=== PATIENT | male | born 1990 | race Caucasian/White ===

== ENCOUNTER 2016-07-08 07:48 | Emergency (ER) | payer BC ==
[~2016-07-08] VITALS: Ht 190.5 cm; Wt 133.8 kg
[~2016-07-08 07:48] MED LIST: PREDNISONE10 MG PO; PROVENTIL0.09 MG/A1 INH
[2016-07-08 08:08] LABS: BASO # 0.1 10*3/uL (0.0-0.1); BASO % 0.9 % (0.0-1.0); EOS # 0.5 10*3/uL (0.0-0.4); EOS % 5.2 % (1.0-4.0); HEMATOCRIT 49.6 % (42.0-52.0); HEMOGLOBIN 16.5 g/dl (14.0-18.0); LYMPH # 1.8 10*3/uL (1.3-4.4); LYMPH % 20.7 % (27.0-41.0); MEAN CELL VOLUME 85.8 fl (80.0-94.0); MEAN CORPUSCULAR HGB 28.5 pg (27.0-31.0); MEAN CORPUSCULAR HGB CONC 33.3 g/dl (33.0-37.0); MEAN PLATELET VOLUME 9.7 fl (9.6-12.3); MONO # 1.2 10*3/uL (0.1-1.0); MONO % 13.6 % (3.0-9.0); NEUT # 5.1 10*3/uL (2.3-7.9); NEUT % 59.4 % (47.0-73.0); PLATELET COUNT AUTOMATED 336 10*3/uL (130-400); RED BLOOD COUNT 5.78 10*6/uL (4.50-5.90); RED CELL DISTRI WIDTH 14.2 % (0-14.5); WHITE BLOOD COUNT 8.6 10*3/uL (4.8-10.8)
[2016-07-08 08:19] LABS: BUN 8 mg/dl (7-24); CARBON DIOXIDE 25 mmol/L (21-32); CHLORIDE 104 mmol/L (98-107); EST GLOM FILT AFRICAN AMERICAN > 60 ml/min; GLUCOSE 124 mg/dL (65-99); POTASSIUM 3.5 mmol/L (3.5-5.1); SODIUM 140 mmol/L (136-145)
[2016-07-08] MEDS ORDERED: ZITHROMAX250 MG PO (09:02)
[2016-07-08] MEDS ORDERED: ALBUTEROL2.5 MG/0.5 INH (09:02)
[2016-07-08] MEDS ORDERED: DELTASONE20 M1 PO (09:02)
== END 2016-07-08 09:15 | disposition home or self-care (01) ==
LOC: ED 07:48
PROVIDERS: Emergency Medicine
DX: J45.909 Unspecified asthma, uncomplicated (principal); Z91.010 Allergy to peanuts

== ENCOUNTER 2016-12-11 06:50 | Emergency (ER) | payer BC ==
[~2016-12-11] VITALS: Wt 136.1 kg
[~2016-12-11 06:50] MED LIST changes: +ALBUTEROL2.5 MG/0.5 INH; +DELTASONE20 M1 PO; +ZITHROMAX250 MG PO
[2016-12-11] MEDS ORDERED: PROVENTIL HFA6.7 GM INH (07:21)
[2016-12-11] MEDS ORDERED: DELTASONE20 M1 PO (07:21)
[2016-12-11] MEDS ORDERED: DUONEB 3 MG/3 ML3 M1 INH (07:21)
== END 2016-12-11 08:20 | disposition home or self-care (01) ==
LOC: ED 06:50
DX: J45.31 Mild persistent asthma with (acute) exacerbation (principal); M54.9 Dorsalgia, unspecified; Z91.010 Allergy to peanuts

== ENCOUNTER 2016-12-21 14:55 | Inpatient (IN) | payer BC ==
[~2016-12-21] VITALS: Ht 193 cm; Wt 131.6 kg
--- NOTE | ~2016-12-21 | CON ---
[place], [place] REPORT OF CONSULTATION NAME: JULIO GARCIA UNIT #: [id number] [facility]: [facility] DOCTOR: RUSS DICKSON MD BIRTHDATE: [birth year] DOS: 12/22/2016 PULMONARY CONSULTATION, EVALUATION AND MANAGEMENT CONSULTATION REQUESTED BY: Hospitalist services. REASON FOR CONSULTATION: Assessment of bronchial asthma and respiratory failure. HISTORY OF PRESENT ILLNESS: A 26-year-old white male, unknown to me from the past. The patient has been noted with history of bronchial asthma and not using any regular medication for the patient. He has been recently seen in the Emergency Room. Prescribed the metered dose inhaler for this patient for his respiratory symptom management, sent home, which has been all used by the patient at this time. He presented back to the hospital. The patient was reported symptoms of progressive worsening of shortness of breath, which has been noted quite severe, associated wheezing with nonproductive cough. Chest tightness, the patient described. The patient denies any symptoms of hemoptysis. The cough has been noted with a question of sputum expectoration. He has been admitted to the hospital and currently being managed for the acute exacerbation of bronchial asthma with respiratory failure. REVIEW OF SYSTEMS: CONSTITUTIONAL: Fatigue and tiredness noted without symptoms of fever or chills. EYES: Denies any burning, redness, or tenderness. EARS, NOSE, THROAT SYMPTOMS: No sore throat, hoarseness, otalgia, postnasal drainage. CARDIOVASCULAR: Denies anginal pain, edema, pain of the lower extremities. GASTROINTESTINAL: Dysphagia, nausea, vomiting, diarrhea, abdominal pain, hematemesis, melena or hematochezia, history of chronic moderate obesity with symptoms of dysphagia, abnormal weight loss. GENITOURINARY: Denies dysuria, suprapubic pain, hematuria. MUSCULOSKELETAL: Denies acute joint pain, redness, or tenderness. SKIN: No lesions or rashes. CENTRAL NERVOUS SYSTEM: Denies dizziness, headache, diplopia or syncopal episodes. Remaining systems were reviewed with the patient, they were noted all negative. PAST MEDICAL HISTORY: 1. The patient was known with history of bronchial asthma. 2. Moderate obesity, BMI of 35. 3. Noncompliance with use of medications administration for the medical bronchial asthma. PAST SURGICAL HISTORY: None. SOCIAL HISTORY: The patient is single, does not have any children. Denies history of alcohol use or any illicit drugs. [place], [place] REPORT OF CONSULTATION NAME: JULIO GARCIA UNIT #: [id number] ROOM: [facility] DOCTOR: KEITH MCGUIRE MD,RUSS BIRTHDATE: [birth year] FAMILY HISTORY: Both parents was unknown. MEDICATIONS: For the patient which has been noted, the patient on admission with use of tapering dose of prednisone or antibiotic, use of the DuoNeb and albuterol sulfate. ALLERGIES: THE DRUG ALLERGY HISTORY, THE PATIENT NOTED HAS ALLERGIES TO THE PEANUTS. PHYSICAL EXAMINATION: GENERAL: A 26-year-old male who has been currently noted awake and alert without any distress. VITAL SIGNS: Height of 6 feet 4 inches, weight of 290 pounds, BMI 35.3. Shows normal temperature since admission, respiratory rate of 18-24, heart rate of 115-94. The blood pressure ranges between 132/78-149/82. Pulse oxygen saturation on 3 L nasal cannula was 90% saturation. Later on, the Venturi mask and 100% nonrebreather mask. The patient noted 91%-94% saturation. HEENT: Examination shows head was atraumatic. Eyes nonicterus. Severe reduced posterior pharyngeal space. NECK: Supple. Head was atraumatic. CARDIOVASCULAR SYSTEM: S1, S2 audible. LUNGS: Diffuse reduction in the breath sounds with expiratory wheezing. The patient was noted in the lungs. ABDOMEN: Soft, nontender, bowel sounds are present and obese. EXTREMITIES: Shows no edema, clubbing, cyanosis. CENTRAL NERVOUS SYSTEM: Cranial nerves 2-12 intact. No focal deficit. MUSCULOSKELETAL: Does not show any acute deformities. SKIN: No lesions or rashes. LABORATORY DATA: BMP of the patient on 12/21 on admission was noted as normal. The CBC of the patient on 12/21/2016 was noted as normal except eosinophils are 5.6%. Chest x-ray, 1 view, on 12/21, does not show any acute pulmonary infiltration. Lactic acid vary from month 2.6-1.4. CMP this morning. The patient noted normal BUN and creatinine. Glucose mildly elevated, 146. Electrolytes: The patient shows phosphorus 1.4, magnesium was normal. CBC of this morning, WBC count 12.8, hemoglobin and hematocrit normal, platelet count was normal. The patient had a CT of the chest done shows area of patchy ground glass opacities noted in the subpleural distribution. Arterial blood gas of the patient that was done on 6 L nasal cannula showed pH of 7.41, pCO2 of 32, pO2 of 58.5. IMPRESSION: 1. The patient who had been currently admitted to the hospital noted with severe acute exacerbation of bronchial asthma with severe acute hypoxemic respiratory failure secondary to that. 2. Patchy area of ground glass opacity suggestive of possibility of addition bronchiolitis as the possibility along with bronchial asthma. There were no clinical evidence of pneumonia. 3. Vitamin D tolerated. The patient bronchitis would be considered as well exacerbating the current problem. [place], [place] REPORT OF CONSULTATION NAME: JULIO GARCIA UNIT #: [id number] [facility]: [facility] [birth year] 4. History of chronic obesity. 5. Very mild hyperglycemia secondary to corticosteroid use. 6. Lack of regular respiratory medications and compliant with medication needed for the medical bronchial asthma long-term. PLAN OF MANAGEMENT: The patient will be continued on the corticosteroids, use of the bronchodilators. The oxygen supplementation continue to maintain saturation 90% greater. Ordered otherwise panel for this patient to assess the patient for the assessment of any viral etiology. Titrate oxygen, maintaining saturation 90% or greater, also continue use of the BiPAP if necessary for this patient for the medical management of the hypoxic respiratory failure as well with the current severe hypoxemia. Usual care, other supportive therapy, plan of management and care. Addition changes in treatment: Continue the patient based on the progression of the illness. Supplementation of the phosphorus, the patient will be given as well intravenously and then oral supplementation needs to be done. Reduction of the dose of the corticosteroids for the patient based on the response to the treatment reduction and improvement in the wheezing as well as exacerbation of bronchial asthma. Usual care, other supportive plan of therapy and care. Start the patient on Dulera for the long-term management for this patient to help with this medical management. The patient should also consider application for assistance program to get a regular medication to prevent the life-threatening bronchial asthma exacerbation. Thanks for allowing me to participate in the care of this patient. RUSS PARKER MD CM:CONSTR:REPORT OF CONSULTATION 1048 12/22/16 1839 interface
--- NOTE | ~2016-12-21 | PR ---
[place], [place] PROGRESS NOTE NAME: JULIO GARCIA UNIT #: [id number] ROOM: [facility] DOCTOR: ROSA ISELA COULTER DO BIRTHDATE: [birth year] DOS: 12/24/2016 SUBJECTIVE: The patient has been doing overall well. Shortness of breath has decreased along with coughing and wheezing are also resolving. The patient denies any fever, chills, nausea, vomiting or chest pain. PHYSICAL EXAMINATION: VITAL SIGNS: Temperature 98.2, pulse 86, respiratory rate 20, blood pressure of 122/59. Pulse ox, patient was noted to be 92% at room air, lying on his bed. The patient's pulse ox was noted to be 88% with ambulation. HEENT: Showed no changes. NECK: Supple. CARDIOVASCULAR: S1, S2 audible. LUNGS: Did not note any wheezing or crackles. Decreased breath sounds at the bases. ABDOMEN: Soft, nontender. EXTREMITIES: Did not show any edema. LABORATORY DATA: CBC yesterday showed white count of 23.7, hemoglobin of 14.3, platelet count of 363, BUN of 16, creatinine of 0.84 and glucose of 120. The culture of sputum showed normal samira from 12/22/2016 with Gram stain of many white blood cells, moderate epithelial cells, moderate Gram-positive cocci in pairs and chains and rare Gram-negative bacilli. IMPRESSION: 1. Acute asthma exacerbation with severe hypoxic respiratory failure, improving. 2. Patchy ground glass opacity, possible bronchitis, improving. 3. History of chronic obesity. PLAN: 1. Decrease Solu-Medrol to 40 b.i.d. 2. Maintain oxygen saturation above 90%. 3. Continue Dulera for long-term treatment. 4. The patient can be downgraded to telemetry floor. 5. Possible discharge tomorrow. ROSA ISELA COULTER DO [place], [place] PROGRESS NOTE NAME: JULIO GARCIA UNIT #: [id number] ROOM: [facility] DOCTOR: ROSA ISELA COULTER DO BIRTHDATE: [birth year] RUSS PARKER MD CM:PATRICK [id number] ROSA ISELA COULTER DO 12/24/16 1134 interface
--- NOTE | ~2016-12-21 | PR ---
[place], [place] PROGRESS NOTE NAME: JULIO GARCIA UNIT #: [id number] ROOM: [facility] DOCTOR: ROSA ISELA COULTER DO BIRTHDATE: [birth year] DOS: 12/23/[address] Russ Parker. SUBJECTIVE: The patient has been noted to be quite comfortable at this time, resting on his bed. The patient denies any complaints. The patient states that his breathing has improved since yesterday. OBJECTIVE: VITAL SIGNS: Temperature of 98.1, pulse of 87, respiratory rate of 20, blood pressure of 131/73, 92% pulse ox on BiPAP of 50%. GENERAL: Currently, the patient is off of BiPAP. HEENT: Showed no new changes. NECK: Supple. CARDIOVASCULAR: S1, S2 audible. LUNGS: Did not note any wheezing or crackles. ABDOMEN: Soft, nontender. EXTREMITIES: Did not show edema. LABORATORY DATA: The patient's CBC: White cell count of 23.7, hemoglobin of 14.3, platelet of 362. BMP today: BUN of 16, creatinine of 0.84, glucose of 120. Gram stain final shows many white blood cells, moderate epithelial, moderate gram-positive cocci in pairs and chains, rare gram-negative bacilli. Sputum culture pending. IMPRESSION: 1. Acute asthma exacerbation with severe hypoxic respiratory failure, improving. 2. Patchy ground glass opacity, possibility of bronchitis. 3. History of chronic obesity. 4. Lack of regular respiratory medication and compliant with medication needed for medical bronchial asthma long-term. PLAN: 1. Decrease Solu-Medrol to 40 mg q.8h. 2. Maintain oxygen saturation above 90%. Use BiPAP if necessary. 3. Assess for viral etiology. 4. Continue Dulera for long-term management. ROSA ISELA COULTER DO [place], [place] PROGRESS NOTE NAME: JULIO GARCIA UNIT #: [id number] ROOM: [facility] DOCTOR: ROSA ISELA COULTER DO BIRTHDATE: [birth year] RUSS PARKER MD CM:PATRICK [id number] ROSA ISELA COULTER DO 12/23/16 1609 interface
--- NOTE | ~2016-12-21 | PR ---
[place], [place] PROGRESS NOTE NAME: JULIO GARCIA UNIT #: [id number] ROOM: [facility] DOCTOR: KEITH MCGUIRE MD,RUSS BIRTHDATE: [birth year] DOS: 12/23/2016 ADDENDUM TO THE PROGRESS NOTE The note which is done by the vice president medical affairs was personally approved. RUSS PARKER MD CM:PNTRANS [id number] RUSS MCGUIRE MD 12/23/16 1200 interface
--- NOTE | ~2016-12-21 | PR ---
[place], [place] PROGRESS NOTE NAME: JULIO GARCIA UNIT #: [id number] ROOM: [facility] DOCTOR: KEITH MCGUIRE MD,RUSS BIRTHDATE: [birth year] DOS: 12/23/2016 SUBJECTIVE: The patient was independently seen and examined with [id number] encounter. The labs were personally reviewed. The decision for this patient's management were personally made for today's visit. The patient has been doing very well, he used the BiPAP for a few hours as ordered. Shortness of breath of the patient was decreased, the coughing and wheezing was also resolving. He was continued to high dose of corticosteroids. PHYSICAL EXAMINATION: VITAL SIGNS: The patient's reviewed was essentially noted as normal with the resolution of tachycardia. The pulse oxygen saturation was noted as 92% with the BiPAP and nasal cannula was 96%-97% saturation. HEENT: Noted with chronic obesity. LUNGS: Noted decreased breath sounds bilaterally with the reduction of the expiratory wheezing. There were no crackles heard. EXTREMITIES: Does not show any edema. LABORATORY DATA: The patient's CBC was noted with WBC count 23.7, remaining CBC was normal. The culture of the sputum preliminary showing normal samira from 12/22/2016 with Gram stain many white blood cells, moderate epithelial cells, moderate gram-positive cocci in pairs and chains and rare gram-negative bacilli. CMP of the patient was essentially noted grossly normal except. glucose minimally elevated at 120. PLAN OF TREATMENT: The patient in general has been improving with severe acute hypoxic respiratory failure with acute tracheobronchitis, leukocytosis induced by the corticosteroids. History of chronic obesity as well. The patient's steroid dose will be decreased at this time to 40 mg q. 8 hours. Continue bronchodilator treatment plan as previously. Monitor respiratory status. The patient could be transferred from the intensive care unit to telemetry floor if needed. RUSS PARKER MD CM:PNTRANS [phone] RUSS MCGUIRE MD 12/24/16 0120 interface
[~2016-12-21 14:55] MED LIST changes: +DUONEB 3 MG/3 ML3 M1 INH; +PROVENTIL HFA6.7 GM INH
[2016-12-21 15:13] VITALS: BP 136/90
[2016-12-21 15:32] LABS: BASO # 0.1 10*3/uL (0.0-0.1); BASO % 0.5 % (0.0-1.0); EOS # 0.5 10*3/uL (0.0-0.4); EOS % 5.6 % (1.0-4.0); HEMATOCRIT 46.9 % (42.0-52.0); HEMOGLOBIN 15.7 g/dl (14.0-18.0); LYMPH # 2.1 10*3/uL (1.3-4.4); LYMPH % 23.1 % (27.0-41.0); MEAN CELL VOLUME 87.8 fl (80.0-94.0); MEAN CORPUSCULAR HGB 29.4 pg (27.0-31.0); MEAN CORPUSCULAR HGB CONC 33.5 g/dl (33.0-37.0); MEAN PLATELET VOLUME 9.8 fl (9.6-12.3); MONO # 0.7 10*3/uL (0.1-1.0); MONO % 8.1 % (3.0-9.0); NEUT # 5.7 10*3/uL (2.3-7.9); NEUT % 62.5 % (47.0-73.0); PLATELET COUNT AUTOMATED 314 10*3/uL (130-400); RED BLOOD COUNT 5.34 10*6/uL (4.50-5.90); RED CELL DISTRI WIDTH 13.8 % (0-14.5); WHITE BLOOD COUNT 9.1 10*3/uL (4.8-10.8)
[2016-12-21 15:44] LABS: BUN 10 mg/dl (7-24); CHLORIDE 105 mmol/L (98-107); CREATININE 0.88 mg/dL (0.70-1.30); POTASSIUM 3.7 mmol/L (3.5-5.1); SODIUM 140 mmol/L (136-145)
--- NOTE | 2016-12-21 15:57 | NUR ---
PATIENT SAYS BREATHING IMPROVED DURING CONTINUOUS NEB...
--- NOTE | 2016-12-21 15:57 | NUR ---
IRRIGATED PATIENT'S RIGHT EAR PER REQUEST FROM PATIENT AND PROVIDER.. USED MIX OF WARM WATER AND PEROXIDE... GOT SOME "CHUNKS..." PATIENT STATES STILL FEELS CLOGGED...
[2016-12-21 16:48] VITALS: BP 140/88
--- NOTE | 2016-12-21 17:00 | NUR ---
LACTIC 2.6
[2016-12-21 17:45] VITALS: BP 146/74
[2016-12-21 18:00] VITALS: BP 146/74
--- NOTE | 2016-12-21 18:00 | NUR ---
Time: 1800 A 26 year old M admitted to 5E under services of IZAIAH IRENE DO. Pt. arrived via stretcher from ER. Chief complaint: INCREASED S.O.B & WHEEZING. ALEJANDRA DE LOS SANTOS
[2016-12-21 20:00] VITALS: BP 146/72
--- NOTE | 2016-12-21 21:28 | NUR ---
PATIENT C/O BEING MORE SOB THAN HE HAD PREVIOUSLY BEEN. POX ON ROOM AIR 92%, I/E WHEEZES HEARD T/O LUNG RAMIREZ, INCREASED WORK OF BREATHING NOTED. NASAL CANNULA APPLIED FOR COMFORT MEASURES. PATIENT'S TEMP ALSO 99.4 ORALLY. PO TYLENOL ADMINISTERED PER ORDER. WILL CONTINUE TO MONITOR PATIENT. RESPIRATORY CALLED TO ADMINISTER BREATHING TX WHEN DUE.
--- NOTE | 2016-12-21 21:46 | NUR ---
NOTIFIED OF CRITICAL LACTIC ACID 3.9, UP FROM 3.2. NEW ORDERS RECEIVED.
--- NOTE | 2016-12-21 22:00 | NUR ---
SPOKE WITH AT THIS TIME REGARDING PATIENT'S CONDITION. NOTIFIED THAT PATIENT'S NEXT BREATHING TX NOT DUE UNTIL 2300. NEW ORDERS TO FOLLOW. ALSO INSTRUCTED TO INCREASE PATIENT TO 3L NC. WILL MONITOR.
--- NOTE | 2016-12-21 23:12 | NUR ---
PATIENT REQUESTED AND RECEIVED PO RESTORIL PER PRN ORDER TO HELP HIM SLEEP. WILL MONITOR EFFECTIVENESS. EARLIER TYLENOL EFFECTIVE. ORAL TEMP NOW 98.8.
[2016-12-22] VITALS (7 sets, daily range): BP systolic 119–149; BP diastolic 57–89
--- NOTE | 2016-12-22 01:20 | NUR ---
PATIENT C/O BEING SOB ONCE AGAIN. LABORED BREATHING NOTED. CALLED, HERE TO SEE PATIENT AT THIS TIME. NEW ORDERS RECEIVED.
[2016-12-22 01:49] LABS: ABG BASE EXCESS -2.5 mmol/L (-2.0-2.0); ABG HCO3 20.5 mmol/l (22-26); ABG O2 SATURATION 90.5 % (95-97); ARTERIAL BLOOD GAS PCO2 32.5 mmHg (35-45); ARTERIAL BLOOD GAS PH 7.417 (7.35-7.45); ARTERIAL BLOOD GAS PO2 58.5 mmHg (80-90)
--- NOTE | 2016-12-22 01:50 | NUR ---
PT. RECEIVED FROM Freida, REPORT RECEIVED FROM MUKESH KIM. VITAL SIGNS 98.0-120-20, 135/61. PULSE OX 91% ON 50% VENTURI MASK. PT. TEXTING AND COMPLAINING OF MONITOR BEEPING. STATED HE IS EXHAUSTED AND JUST WANTS TO SLEEP. LUNGS DIMINISHED WITH WHEEZES BILAT. SOB NOTED WITH EXERTION, MINIMAL AT REST. JOSE LIZARRAGA, RN
--- NOTE | 2016-12-22 02:25 | NUR ---
SPOKE WITH AT THIS TIME REGARDING CONSULT. DISCUSSED PERTINENT PATIENT INFORMATION INCLUDING ADMITTING DX, TRANSFER TO [facility] BED 6, ABG RESULTS, CLINICAL INFORMATION, AND PATIENT HX. NO NEW ORDERS RECEIVED AT THIS TIME.
--- NOTE | 2016-12-22 05:31 | NUR ---
CALLED DOCTOR POLANCO WITH RESULTS OF CTA CHEST. NO NEW ORDRES AT THIS TIME.PATIENT IS CURRENTLY 93% ON NONREBREATHER HEART RATE 116 RESP RATE 26.PATIENT IS SITTING UP IN BED WTCHING TV CURRENTLY.
[2016-12-22 06:25] LABS: HEMATOCRIT 45.9 % (42.0-52.0); HEMOGLOBIN 14.7 g/dl (14.0-18.0); MEAN CELL VOLUME 87.9 fl (80.0-94.0); MEAN CORPUSCULAR HGB 28.2 pg (27.0-31.0); MEAN PLATELET VOLUME 10.1 fl (9.6-12.3); PLATELET COUNT AUTOMATED 332 10*3/uL (130-400); RED BLOOD COUNT 5.22 10*6/uL (4.50-5.90); RED CELL DISTRI WIDTH 13.7 % (0-14.5); WHITE BLOOD COUNT 12.8 10*3/uL (4.8-10.8)
--- NOTE | 2016-12-22 06:44 | NUR ---
PATIENT CALLED ME INTO THE ROOM PATENT STAED THAAT HE FEELS LIKE HE IS HAVING A PANIC ATTACK. PATIENTS RESP RATE WAS IN THE 40'S AND PATIENT HEART RATE WAS IN THE 140'S PATIENT PULSE OX IS 98% IN NONREBREATHER.
[2016-12-22 06:45] LABS: ALBUMIN 3.8 gm/dl (3.1-4.5); BUN 9 mg/dl (7-24); CHLORIDE 106 mmol/L (98-107); MAGNESIUM 2.6 mg/dL (1.5-2.1); POTASSIUM 4.2 mmol/L (3.5-5.1); SODIUM 139 mmol/L (136-145)
[2016-12-22 06:50] LABS: CREATININE 0.96 mg/dL (0.70-1.30); PHOSPHOROUS 1.4 mg/dL (2.5-4.9); SGOT/AST 21 IU/L (3-35); SGPT/ALT 56 U/L (12-78); TOTAL PROTEIN 8.1 gm/dL (6.4-8.2)
[2016-12-22 06:58] LABS: ALKALINE PHOSPHATASE 78 U/L (45-117)
--- NOTE | 2016-12-22 07:27 | NUR ---
CALLED MYA GIL WITH PATIENTS CRITICAL LACTIC ACID OF 3.4. NO NEW ORDRES AT THIS TIME.
--- NOTE | 2016-12-22 07:32 | NUR ---
IV ATIVAN GIVEN PER ONE TIME ORDER FOR PT'S C/O "PANIC ATTACKS"
[2016-12-22 07:34] LABS: PLATELET SUFFICIENCY NORMAL (NORMAL); TOTAL CELLS COUNTED 100 #CELLS
--- NOTE | 2016-12-22 08:00 | NUR ---
PT RESTING. EARLIER ATIVAN EFFECTIVE.
--- NOTE | 2016-12-22 08:05 | NUR ---
DR GIL IN TO SEE PT.
--- NOTE | 2016-12-22 08:46 | NUR ---
DR PARKER IN TO SEE PT.
--- NOTE | 2016-12-22 09:28 | NUR ---
DR STANTON IN TO SEE PT.
--- NOTE | 2016-12-22 12:44 | NUR ---
insurance demos given to Giselle, reference number is [id number], emailed corporate fax [phone]
--- NOTE | 2016-12-22 14:45 | NUR ---
MEDICATED PT PER PRN ORDER WITH ATIVAN IV FOR PT'S C/O ANXIETY. PT WILL BE PLACED BACK TO BIPAP. PT LASTED ABOUT 15 MINUTES ON 50% VENTURI MASK AND THEN C/O SOB. POX 91% AT THAT TIME. NOTIFIED LUPE,RESP. THERAPIST AND SHE IS GOING TO PUT BACK ON BIPAP.
--- NOTE | 2016-12-22 15:20 | NUR ---
PT RESTING WITH BIPAP ON. EARLIER ATIVAN EFFECTIVE.
--- NOTE | 2016-12-22 15:37 | NUR ---
REVEIWED PT'S HOME MEDS WITH HIM.
--- NOTE | 2016-12-22 19:59 | NUR ---
PATIENT LYING IN BED, WEARING BIPAP. VISITOR AT BEDSIDE. PATIENT ASKED IF HIS LUNGS SOUNDED ANY BETTER. PATIENT STATED THE ATIVAN WAS HELPING TO RELAX, WHILE ON BIPAP. WILL GIVE DOSE FOR THE NIGHT WHEN TIME ALLOWS. PATIENT LEFT WITH CALL LIGHT IN REACH.
--- NOTE | 2016-12-22 20:30 | NUR ---
PATIENT GIVEN ATIVAN TO HELP CALM/RELAX WHILE ON THE BIPAP. WILL CONTINUE TO MONITOR AND REASSESS.
--- NOTE | 2016-12-22 22:00 | NUR ---
PATIENT STATED THE ATIVAN WAS HELPING HIM. HE ALSO STATED THAT HE IS FEELING BETTER.
[2016-12-23] VITALS: BP 124/68
--- NOTE | 2016-12-23 00:40 | NUR ---
PATIENT AWOKE WITH PANIC ATTACK. PATIENT STATED THAT HE GETS THESE DUE TO NOT HAVING HIS GF AT BEDSIDE. PATIENT ALSO STATED THAT THE PANIC ATTACKS STARTED WHEN HE LOST HIS DOG IN [place]. PATIENT GIVEN ATIVAN AND A RESTORIL TO HELP CALM AND SLEEP. WILL CONTINUE TO MONITOR. PATIENT LEFT WITH CALL LIGHT IN REACH.
--- NOTE | 2016-12-23 01:00 | NUR ---
24 HR chart check completed.
--- NOTE | 2016-12-23 03:30 | NUR ---
PATIENT HAS BEEN UP SINCE LAST DOSE OF ATIVAN AND RESTORIL, STATED HE WAS STARTING TO FEEL SLEEPY. PATIENT STAYED ON BIPAP THROUGH THE NIGHT, TOOK OFF TO LET PATIENT USE RESTROOM, WAS PLACED ON VENTURI, SAT 98%.
[2016-12-23 03:57] VITALS: BP 131/73
[2016-12-23 05:58] LABS: HEMATOCRIT 43.7 % (42.0-52.0); HEMOGLOBIN 14.3 g/dl (14.0-18.0); MEAN CELL VOLUME 88.8 fl (80.0-94.0); MEAN CORPUSCULAR HGB 29.1 pg (27.0-31.0); MEAN CORPUSCULAR HGB CONC 32.7 g/dl (33.0-37.0); MEAN PLATELET VOLUME 10.3 fl (9.6-12.3); PLATELET COUNT AUTOMATED 362 10*3/uL (130-400); RED BLOOD COUNT 4.92 10*6/uL (4.50-5.90); RED CELL DISTRI WIDTH 14.4 % (0-14.5); WHITE BLOOD COUNT 23.7 10*3/uL (4.8-10.8)
[2016-12-23 06:23] LABS: ALBUMIN 3.8 gm/dl (3.1-4.5); ALKALINE PHOSPHATASE 73 U/L (45-117); BUN 16 mg/dl (7-24); CHLORIDE 104 mmol/L (98-107); CREATININE 0.84 mg/dL (0.70-1.30); MAGNESIUM 2.4 mg/dL (1.5-2.1); SGOT/AST 24 IU/L (3-35); SGPT/ALT 57 U/L (12-78); SODIUM 137 mmol/L (136-145); TOTAL PROTEIN 7.6 gm/dL (6.4-8.2)
[2016-12-23 06:34] LABS: TOTAL CELLS COUNTED 100 #CELLS
[2016-12-23 06:35] LABS: PLATELET SUFFICIENCY NORMAL (NORMAL)
[2016-12-23 08:00] VITALS: BP 117/61
--- NOTE | 2016-12-23 08:08 | NUR ---
24 HR chart check completed.
--- NOTE | 2016-12-23 09:35 | NUR ---
Area Operations Director in to talk to patient. Patient states lives at home with family. There are few steps in the home. Physician: Pharmacy: [facility] [place] [facility]: none Patient's level of ADLs: INDEPENDENT Patient has working utilities: all working DME: none Follow-up physician's appointment after d/c: will be made by hospitalist nurse director upon discharge Does patient want to access PORTAL?: no Discharge plan discussed with patient, patient lives at home, is independent in adls and ambulation, denies any home needs. TRAN LYON
[2016-12-23 12:00] VITALS: BP 100/35
[2016-12-23 16:00] VITALS: BP 102/36
--- NOTE | 2016-12-23 19:42 | NUR ---
CHART CHECK COMPLETED. GIRLFRIEND AT BEDSIDE. NUMEROUS QUESTIONS ANSWERED BY STAFF.
--- NOTE | 2016-12-23 19:54 | NUR ---
SNACKS GIVEN TO PT BY DIETARY PER PT REQUEST.
[2016-12-23 20:00] VITALS: BP 107/60
--- NOTE | 2016-12-23 20:27 | NUR ---
SPOKE WITH DR GOOD RE: PT WANTING TO GO HOME AMA HE "FEELS FINE".
--- NOTE | 2016-12-23 20:32 | NUR ---
AFTER DISCUSSION WITH PT ABOUT RISKS OF GOING HOME AND THAT PT STILL GETTING IV STEROIDS AND THAT HIS HR IS 120/MIN WITH ACTIVITY, PT DECIDES HE "WILL STAY ONE MORE NIGHT".
[2016-12-24] VITALS: BP 109/47
--- NOTE | 2016-12-24 00:23 | NUR ---
RESTORIL AT 2130 FOR SLEEP NOT EFFECTIVE... PT AWAKE, WATCHING MOVIE ON HIS PHONE.
[2016-12-24 04:00] VITALS: BP 110/50
[2016-12-24 08:00] VITALS: BP 122/59
[2016-12-24 12:00] VITALS: BP 135/70
[2016-12-25 00:04] LABS: ADENOVIRUS Negative (Negative); INFLUENZA A Negative (Negative); INFLUENZA B Negative (Negative); METAPNEUMOVIRUS Negative (Negative); PARAINFLUENZA 1 Negative (Negative); PARAINFLUENZA 2 Negative (Negative); PARAINFLUENZA 3 Negative (Negative); RHINOVIRUS Positive (Negative); RSV A Negative (Negative); RSV B Negative (Negative)
== END 2016-12-24 12:50 | disposition left against medical advice (07) | DRG 871 ==
LOC: ED 14:55 → EDHOLD 16:42 → ICCU 16:42 → 5E 17:02 → ICCU 12-22 01:50
PROVIDERS: Emergency Medicine; Hospitalist; Internal Medicine Critical Care Medicine; ADMIT Emergency Medicine
PROC: 5A09357 Assistance with Respiratory Ventilation, Less than 24 Consecutive Hours, Continuous Positive Airway Pressure (ICD-10-PCS; principal; 2016-12-22)
DX: A41.9 Sepsis, unspecified organism (principal); J18.1 Lobar pneumonia, unspecified organism; J96.01 Acute respiratory failure with hypoxia; E87.2 Acidosis; J45.901 Unspecified asthma with (acute) exacerbation; R65.20 Severe sepsis without septic shock; E66.9 Obesity, unspecified; Z53.21 Procedure and treatment not carried out due to patient leaving prior to being seen by health care provider; R73.9 Hyperglycemia, unspecified; F41.9 Anxiety disorder, unspecified; Z91.010 Allergy to peanuts; Z91.018 Allergy to other foods; Z72.89 Other problems related to lifestyle; Z82.49 Family history of ischemic heart disease and other diseases of the circulatory system; Z79.899 Other long term (current) drug therapy; Z68.35 Body mass index [BMI] 35.0-35.9, adult; Z91.14 Patient's other noncompliance with medication regimen

== ENCOUNTER 2017-02-20 11:06 | Emergency (ER) | payer BC ==
[~2017-02-20] VITALS: Ht 190.5 cm; Wt 127.0 kg
[2017-02-20] MEDS ORDERED: PREDNISONE10 MG PO (11:19)
[2017-02-20] MEDS ORDERED: FLONASE ALLERG9.9 ML NAS (11:19)
[2017-02-20] MEDS ORDERED: CLARITIN10 MG PO (11:19)
[2017-02-20] MEDS ORDERED: DUONEB 3 MG/3 ML3 M1 INH (11:19)
== END 2017-02-20 13:31 | disposition home or self-care (01) ==
LOC: ED 11:06
DX: J45.901 Unspecified asthma with (acute) exacerbation (principal); R03.0 Elevated blood-pressure reading, without diagnosis of hypertension; F10.10 Alcohol abuse, uncomplicated; Z91.010 Allergy to peanuts; Z88.8 Allergy status to other drugs, medicaments and biological substances

== ENCOUNTER 2017-04-06 19:47 | Emergency (ER) | payer BC ==
[~2017-04-06] VITALS: Ht 190.5 cm; Wt 136.1 kg
[~2017-04-06 19:47] MED LIST changes: +CLARITIN10 MG PO; +FLONASE ALLERG9.9 ML NAS
[2017-04-06 20:29] LABS: BASO # 0.1 10*3/uL (0.0-0.1); BASO % 0.6 % (0.0-1.0); EOS # 0.4 10*3/uL (0.0-0.4); HEMATOCRIT 49.4 % (42.0-52.0); HEMOGLOBIN 16.7 g/dl (14.0-18.0); LYMPH # 1.6 10*3/uL (1.3-4.4); LYMPH % 14.8 % (27.0-41.0); MEAN CELL VOLUME 84.9 fl (80.0-94.0); MEAN CORPUSCULAR HGB 28.7 pg (27.0-31.0); MEAN CORPUSCULAR HGB CONC 33.8 g/dl (33.0-37.0); MEAN PLATELET VOLUME 9.7 fl (9.6-12.3); MONO # 0.9 10*3/uL (0.1-1.0); MONO % 8.5 % (3.0-9.0); NEUT # 7.9 10*3/uL (2.3-7.9); NEUT % 71.8 % (47.0-73.0); PLATELET COUNT AUTOMATED 382 10*3/uL (130-400); RED BLOOD COUNT 5.82 10*6/uL (4.50-5.90)
[2017-04-06 20:46] LABS: ALBUMIN 4.1 gm/dl (3.1-4.5); ALKALINE PHOSPHATASE 81 U/L (45-117); BUN 11 mg/dl (7-24); CHLORIDE 102 mmol/L (98-107); CREATININE 1.08 mg/dL (0.70-1.30); POTASSIUM 3.4 mmol/L (3.5-5.1); SGOT/AST 28 IU/L (3-35); SGPT/ALT 73 U/L (12-78); SODIUM 138 mmol/L (136-145); TOTAL PROTEIN 8.2 gm/dL (6.4-8.2)
[2017-04-06 20:50] LABS: TROPONIN I < 0.015 ng/ml (<0.045)
[2017-04-06] MEDS ORDERED: AVPAK AZITHROM250 M1 PO (21:26)
[2017-04-06] MEDS ORDERED: PREDNISONE50 MG PO (21:26)
== END 2017-04-06 21:49 | disposition left against medical advice (07) ==
LOC: ED 19:47
PROVIDERS: Student in an Organized Health Care Education/Training Program
DX: J96.90 Respiratory failure, unspecified, unspecified whether with hypoxia or hypercapnia (principal); J45.909 Unspecified asthma, uncomplicated; Z91.010 Allergy to peanuts

== ENCOUNTER 2017-04-09 15:05 | Emergency (ER) | payer BC ==
[~2017-04-09] VITALS: Ht 182.8 cm; Wt 113.4 kg
[~2017-04-09 15:05] MED LIST changes: +AVPAK AZITHROM250 M1 PO; +PREDNISONE50 MG PO
[2017-04-09 15:47] LABS: HEMATOCRIT 47.7 % (42.0-52.0); HEMOGLOBIN 15.6 g/dl (14.0-18.0); MEAN CELL VOLUME 87.2 fl (80.0-94.0); MEAN CORPUSCULAR HGB 28.5 pg (27.0-31.0); MEAN CORPUSCULAR HGB CONC 32.7 g/dl (33.0-37.0); MEAN PLATELET VOLUME 9.5 fl (9.6-12.3); PLATELET COUNT AUTOMATED 367 10*3/uL (130-400); RED BLOOD COUNT 5.47 10*6/uL (4.50-5.90); RED CELL DISTRI WIDTH 14.9 % (0-14.5); WHITE BLOOD COUNT 15.3 10*3/uL (4.8-10.8)
[2017-04-09 16:02] LABS: ALBUMIN 3.9 gm/dl (3.1-4.5); ALKALINE PHOSPHATASE 68 U/L (45-117); BUN 23 mg/dl (7-24); CHLORIDE 105 mmol/L (98-107); CREATININE 0.97 mg/dL (0.70-1.30); POTASSIUM 3.7 mmol/L (3.5-5.1); SGOT/AST 34 IU/L (3-35); SGPT/ALT 84 U/L (12-78); SODIUM 141 mmol/L (136-145); TOTAL PROTEIN 7.9 gm/dL (6.4-8.2)
[2017-04-09 16:08] LABS: PLATELET SUFFICIENCY NORMAL (NORMAL); TOTAL CELLS COUNTED 100 #CELLS
[2017-04-09] MEDS ORDERED: VIBRAMYCIN100 MG PO (17:19)
[2017-04-09] MEDS ORDERED: PREDNISONE20 M1 PO (17:19)
== END 2017-04-09 18:33 | disposition home or self-care (01) ==
LOC: ED 15:05
PROVIDERS: Emergency Medicine
DX: J45.901 Unspecified asthma with (acute) exacerbation (principal); R73.9 Hyperglycemia, unspecified; F10.10 Alcohol abuse, uncomplicated; Z91.010 Allergy to peanuts

== ENCOUNTER 2017-06-04 11:52 | Emergency (ER) | payer BC ==
[~2017-06-04] VITALS: Ht 193 cm; Wt 131.5 kg
[~2017-06-04 11:52] MED LIST changes: +PREDNISONE20 M1 PO; +VIBRAMYCIN100 MG PO
[2017-06-04] MEDS ORDERED: DUONEB 3 MG/3 ML3 M1 INH (15:37)
[2017-06-04] MEDS ORDERED: PREDNISONE50 MG PO (15:37)
== END 2017-06-04 15:31 | disposition home or self-care (01) ==
LOC: ED 11:52
DX: J45.901 Unspecified asthma with (acute) exacerbation (principal); F12.10 Cannabis abuse, uncomplicated; Z98.890 Other specified postprocedural states; Z87.01 Personal history of pneumonia (recurrent); Z79.899 Other long term (current) drug therapy; Z91.010 Allergy to peanuts

== ENCOUNTER 2017-09-23 04:05 | Emergency (ER) | payer BC ==
[~2017-09-23] VITALS: Ht 190.5 cm; Wt 140.2 kg
[2017-09-23] MEDS ORDERED: Motrin,Rufen800 MG PO (04:44)
[2017-09-23] MEDS ORDERED: KEFLEX500 M1 PO (04:45)
== END 2017-09-23 04:59 | disposition home or self-care (01) ==
LOC: ED 04:05
DX: S80.02XA Contusion of left knee, initial encounter (principal); S80.212A Abrasion, left knee, initial encounter; L08.9 Local infection of the skin and subcutaneous tissue, unspecified; F12.90 Cannabis use, unspecified, uncomplicated; J45.909 Unspecified asthma, uncomplicated; Z98.890 Other specified postprocedural states; Z91.010 Allergy to peanuts; Z79.899 Other long term (current) drug therapy; W19.XXXA Unspecified fall, initial encounter; Y93.89 Activity, other specified; Y92.89 Other specified places as the place of occurrence of the external cause; Y99.9 Unspecified external cause status

== ENCOUNTER 2017-11-23 02:12 | Emergency (ER) | payer BC ==
[~2017-11-23] VITALS: Ht 190.5 cm; Wt 136.1 kg
[~2017-11-23 02:12] MED LIST changes: +KEFLEX500 M1 PO; +Motrin,Rufen800 MG PO
[2017-11-23] MEDS ORDERED: PREDNISONE50 MG PO (03:27)
== END 2017-11-23 04:30 | disposition home or self-care (01) ==
LOC: ED 02:12
DX: J45.901 Unspecified asthma with (acute) exacerbation (principal); Z91.010 Allergy to peanuts; Z91.018 Allergy to other foods

== ENCOUNTER 2018-04-25 | Emergency (ER) | payer OTHER ==
[2018-04-25] MEDS ORDERED: TRAZODONE50 MG PO (07:21)
[2018-04-25] MEDS ORDERED: PROVENTIL HFA6.7 GM INH ×2 (07:40→08:16)
[2018-04-25] MEDS ORDERED: Ipratropium Brom3 ML INH ×2 (07:40→08:16)
[2018-04-25] MEDS ORDERED: PREDNISONE50 MG PO ×2 (07:40→08:16)
[2018-09-11] MEDS ORDERED: PREDNISONE10 MG PO (23:21)
[2018-09-11] MEDS ORDERED: VIBRAMYCIN100 MG PO (23:21)
[2018-09-11] MEDS ORDERED: PROAIR HFA8.5 GM INH (23:22)
== END 2018-04-25 09:20 | disposition home or self-care (01) ==
DX: J45.901 Unspecified asthma with (acute) exacerbation (principal); Z91.018 Allergy to other foods; Z91.010 Allergy to peanuts

== ENCOUNTER 2018-04-28 09:45 | Emergency (ER) | payer OTHER ==
[~2018-04-28] VITALS: Ht 193 cm; Wt 136.1 kg
[~2018-04-28 09:45] MED LIST changes: +Ipratropium Brom3 ML INH; +TRAZODONE50 MG PO
[2018-04-28] MEDS ORDERED: ZOVIRAX400 MG PO (10:01)
== END 2018-04-28 10:03 | disposition home or self-care (01) ==
LOC: ED 09:45
DX: B00.1 Herpesviral vesicular dermatitis (principal); J45.909 Unspecified asthma, uncomplicated; Z91.010 Allergy to peanuts; Z79.899 Other long term (current) drug therapy

== ENCOUNTER 2018-05-10 03:42 | Emergency (ER) | payer OTHER ==
[~2018-05-10] VITALS: Ht 193 cm; Wt 136.1 kg
[~2018-05-10 03:42] MED LIST changes: +ZOVIRAX400 MG PO
[2018-05-10 04:15] LABS: BASO # 0.1 10*3/uL (0.0-0.1); BASO % 0.6 % (0.0-1.0); EOS # 0.5 10*3/uL (0.0-0.4); EOS % 4.1 % (1.0-4.0); HEMATOCRIT 47.1 % (42.0-52.0); HEMOGLOBIN 15.6 g/dl (14.0-18.0); LYMPH # 4.3 10*3/uL (1.3-4.4); LYMPH % 37.9 % (27.0-41.0); MEAN CELL VOLUME 87.5 fl (80.0-94.0); MEAN CORPUSCULAR HGB CONC 33.1 g/dl (33.0-37.0); MEAN PLATELET VOLUME 9.7 fl (9.6-12.3); MONO # 0.8 10*3/uL (0.1-1.0); MONO % 7.3 % (3.0-9.0); NEUT # 5.6 10*3/uL (2.3-7.9); NEUT % 49.8 % (47.0-73.0); PLATELET COUNT AUTOMATED 398 10*3/uL (130-400); RED BLOOD COUNT 5.38 10*6/uL (4.50-5.90); RED CELL DISTRI WIDTH 13.9 % (0-14.5); WHITE BLOOD COUNT 11.2 10*3/uL (4.8-10.8)
[2018-05-10 04:31] LABS: ALBUMIN 3.6 gm/dl (3.1-4.5); ALKALINE PHOSPHATASE 73 U/L (45-117); BUN 18 mg/dl (7-24); CHLORIDE 110 mmol/L (98-107); CREATININE 1.05 mg/dL (0.70-1.30); POTASSIUM 3.9 mmol/L (3.5-5.1); SGOT/AST 18 IU/L (3-35); SGPT/ALT 48 U/L (12-78); SODIUM 142 mmol/L (136-145); TOTAL PROTEIN 7.5 gm/dL (6.4-8.2)
[2018-05-10] MEDS ORDERED: GOOD NEIGHBOR P10 M1 PO (05:26)
[2018-05-10] MEDS ORDERED: PREDNISONE10 M1 PO (05:26)
== END 2018-05-10 05:38 | disposition home or self-care (01) ==
LOC: ED 03:42
PROVIDERS: Emergency Medicine
DX: J06.9 Acute upper respiratory infection, unspecified (principal); J45.901 Unspecified asthma with (acute) exacerbation; R00.0 Tachycardia, unspecified; Z91.010 Allergy to peanuts; Z91.018 Allergy to other foods

== ENCOUNTER 2018-07-10 08:25 | Emergency (ER) | payer OTHER ==
[~2018-07-10] VITALS: Ht 190.5 cm; Wt 136.1 kg
[~2018-07-10 08:25] MED LIST changes: +GOOD NEIGHBOR P10 M1 PO; +PREDNISONE10 M1 PO
[2018-07-10] MEDS ORDERED: PREDNISONE50 MG PO (10:22)
[2018-09-11] MEDS ORDERED: VIBRAMYCIN100 MG PO (23:21)
[2018-09-11] MEDS ORDERED: PREDNISONE10 MG PO (23:21)
[2018-09-11] MEDS ORDERED: PROAIR HFA8.5 GM INH (23:22)
== END 2018-07-10 11:03 | disposition home or self-care (01) ==
LOC: ED 08:25
DX: J45.901 Unspecified asthma with (acute) exacerbation (principal); F12.90 Cannabis use, unspecified, uncomplicated; Z91.010 Allergy to peanuts; Z91.018 Allergy to other foods; Z79.899 Other long term (current) drug therapy

== ENCOUNTER 2018-09-24 07:43 | Emergency (ER) | payer OTHER ==
[~2018-09-24] VITALS: Ht 190.5 cm; Wt 136.1 kg
--- NOTE | ~2018-09-24 | EKG ---
[place], [place] ELECTROCARDIOGRAM REPORT NAME: JULIO GARCIA UNIT #: [id number] ROOM: DOCTOR: EPIPHANY DRAFT REPORT BIRTHDATE: [birth year] [facility] Test Date: 2018-09-24 Test Time: 08:19:59 Pat Name: JULIO GARCIA Department: Room: Gender: Manager Consumer: : 1990 Requested By: HERBERT CALZADA Order Number: [id number] Reading MD: Armaan Amaro MD Measurements Intervals [place] Rate: 106 P: 48 DE: 151 QRS: 90 QRSD: 106 T: 11 QT: 344 QTc: 457 Interpretive Statements Sinus tachycardia Borderline right axis deviation Electronically Signed On 09-26-2018 10:51:31 PDT by Armaan Amaro MD CM:EKGRPT:ELECTROCARDIOGRAM REPORT [id number] 1051 HERBERT HORTON DRAFT REPORT HERBERT CALZADA MD
[~2018-09-24 07:43] MED LIST changes: +PROAIR HFA8.5 GM INH
[2018-09-24 08:10] LABS: BASO # 0.1 10*3/uL (0.0-0.1); BASO % 0.5 % (0.0-1.0); EOS # 0.3 10*3/uL (0.0-0.4); EOS % 2.1 % (1.0-4.0); HEMATOCRIT 48.5 % (42.0-52.0); HEMOGLOBIN 15.7 g/dl (14.0-18.0); LYMPH # 4.6 10*3/uL (1.3-4.4); LYMPH % 32.8 % (27.0-41.0); MEAN CELL VOLUME 89.3 fl (80.0-94.0); MEAN CORPUSCULAR HGB 28.9 pg (27.0-31.0); MEAN CORPUSCULAR HGB CONC 32.4 g/dl (33.0-37.0); MEAN PLATELET VOLUME 9.8 fl (9.6-12.3); MONO # 1.1 10*3/uL (0.1-1.0); MONO % 7.5 % (3.0-9.0); NEUT % 56.7 % (47.0-73.0); PLATELET COUNT AUTOMATED 332 10*3/uL (130-400); RED BLOOD COUNT 5.43 10*6/uL (4.50-5.90); RED CELL DISTRI WIDTH 14.1 % (0-14.5); WHITE BLOOD COUNT 14.1 10*3/uL (4.8-10.8)
[2018-09-24 08:20] LABS: ACT PARTIAL THROMBO TIME 26.5 SECONDS (20.0-32.1); INTERNATIONAL NORM RATIO 0.9 (2.0-3.5)
[2018-09-24 08:27] LABS: ALBUMIN 3.4 gm/dl (3.1-4.5); ALKALINE PHOSPHATASE 73 U/L (45-117); BUN 15 mg/dl (7-24); CHLORIDE 108 mmol/L (98-107); CREATININE 1.12 mg/dL (0.70-1.30); POTASSIUM 3.7 mmol/L (3.5-5.1); SGOT/AST 18 IU/L (3-35); SGPT/ALT 75 U/L (12-78); SODIUM 140 mmol/L (136-145); TOTAL PROTEIN 7.6 gm/dL (6.4-8.2)
[2018-09-24 08:28] LABS: TROPONIN I < 0.015 ng/ml (<0.045)
[2018-09-24 09:23] LABS: BILIRUBIN NEGATIVE (NEGATIVE); BLOOD NEGATIVE (NEGATIVE); CLARITY SL CLOUDY (CLEAR); COLOR YELLOW (YELLOW); GLUCOSE NEGATIVE (NEGATIVE); KETONE NEGATIVE (NEGATIVE); LEUKO ESTERASE NEGATIVE (NEGATIVE); NITRITE NEGATIVE (NEGATIVE); PH 5.5 (5.0-9.0); SPECIFIC GRAVITY >= 1.030 (1.005-1.030); UROBILINOGEN 0.2 E.U./dl (0.2-1.0)
[2018-09-24] MEDS ORDERED: PREDNISONE10 MG PO (09:34)
[2018-09-24 10:06] LABS: MUCOUS 4+; RBC 0-2 rbc/hpf (0-2)
== END 2018-09-24 09:39 | disposition left against medical advice (07) ==
LOC: ED 07:43
PROVIDERS: Emergency Medicine
DX: J45.909 Unspecified asthma, uncomplicated (principal); G89.29 Other chronic pain; M54.9 Dorsalgia, unspecified; R00.0 Tachycardia, unspecified; E66.9 Obesity, unspecified; F17.200 Nicotine dependence, unspecified, uncomplicated; Z91.010 Allergy to peanuts; Z91.018 Allergy to other foods